=== PATIENT | male | born 1995 | race Caucasian/White ===

== ENCOUNTER 2017-05-03 11:35 | Emergency (ER) | payer SELFPAY ==
[~2017-05-03] VITALS: Ht 162.6 cm; Wt 70.1 kg
[~2017-05-03 11:35] MED LIST: FLOMAX 0.40.4 MG/CAP PO; NO HOME MEDICATIONS; PERCOCET 325 MG1 TA2 PO; ZOFRAN ODT8 MG PO
[2017-05-03 11:38] VITALS: TEMP 100.7
[2017-05-03 12:29] LABS: INFLUENZA A POSITIVE; INFLUENZA B NEGATIVE
[2017-05-03] MEDS ORDERED: TAMIFLU 75MG75 MG PO (14:57)
[2017-05-03 15:06] VITALS: BP 121/80; PULSE 88
== END 2017-05-03 15:08 | disposition home or self-care (01) ==
LOC: COL.ER 11:35
PROVIDERS: Emergency Medicine
DX: J10.1 Influenza due to other identified influenza virus with other respiratory manifestations (principal)
CPT/HCPCS: J1885; J2765; J3010; J7030

== ENCOUNTER 2020-12-16 19:06 | Emergency (ER) | payer MEDICAID ==
[~2020-12-16] VITALS: Ht 167.6 cm; Wt 83.2 kg
[~2020-12-16 19:06] MED LIST changes: +TAMIFLU 75MG75 MG PO
[2020-12-16 21:00] VITALS: BP 148/64; PULSE 88; TEMP 97.8
== END 2020-12-16 21:10 | disposition home or self-care (01) ==
LOC: COL.ER 19:06
DX: S63.257A Unspecified dislocation of left little finger, initial encounter (principal); X50.9XXA Other and unspecified overexertion or strenuous movements or postures, initial encounter; Y93.61 Activity, american tackle football

== ENCOUNTER → 2022-01-08 | Outpatient (CLI) | payer OTHER, MEDICAID | LOC: COL.RAD 09:05 | DX: M54.89 Other dorsalgia (principal); M40.204 Unspecified kyphosis, thoracic region ==